=== PATIENT | female | born 1990 | race Asian ===

== ENCOUNTER 2018-01-01 17:42 | Inpatient (IN) | payer BC ==
[2018-01-01 18:13] VITALS: BMI 27.4
[2018-01-01] MEDS ORDERED: Methylergonovine 0.2 MG/ML VIAL IM PRN (18:30)
[2018-01-01] MEDS ORDERED: Diphenoxylate HCl/Atropine Tablet PO PRN ×2 (18:30)
[2018-01-01] MEDS ORDERED: Carboprost 250 MCG/ML AMP IM PRN (18:30)
[2018-01-01] MEDS ORDERED: Ondansetron HCl/PF 4 MG/2 ML Vial IVP PRN ×2 (18:30→20:23)
[2018-01-01] MEDS ORDERED: Promethazine HCl 25 MG/ML VIAL IM PRN ×2 (18:30→20:23)
[2018-01-01] MEDS ORDERED: Acetaminophen 500 MG TAB PO PRN (18:30)
[2018-01-01] MEDS ORDERED: LR / Pitocin 40 units/1000 ml 1,000 ML IV PRN (18:30)
[2018-01-01] MEDS ORDERED: Ibuprofen 800 MG TAB PO PRN (18:30)
[2018-01-01] MEDS ORDERED: Misoprostol 200 MCG TAB PR PRN (18:30)
[2018-01-01] MEDS ORDERED: HYDROcodone/Acetaminophen 5/325 mg Tablet PO PRN ×2 (18:30)
[2018-01-01] MEDS ORDERED: Lidocaine 1% (PF) 30 ML VIAL SC PRN (18:30)
[2018-01-01] MEDS: Lactated Ringer's 1,000 ML IV SCH ×2 (18:35→19:43)
[2018-01-01 18:59] LABS: Mean Corpuscular HGB CONC 33.7 g/dL (32.0-36.0); Mean Corpuscular Hemoglobin 30.6 pg (27.0-31.0); Mean Platelet Volume 8.6 fL (7.4-10.4); Platelet Count 193 thou/uL (130-400); RBC Distribution Width 13.2 % (11.5-14.5); Red Blood Cell (RBC) Count 4.56 mill/uL (4.20-5.40); White Blood Cell (WBC) Count 15.3 thou/uL (4.8-10.8)
--- NOTE | 2018-01-01 19:35 | PDOC.LDHP ---
Labor and Delivery H&P Chief complaint: contractions HPI: 27 yo @ 39w0d by LMP c/w 10 week sono who presents with complaints of ctx, in labor. LGA growth curve noted on serial sonos, however, most recent at 82% ( previously > 90%) Current gestational age (weeks): 39 Due date: 01/08/18 Dating criteria: last menstrual period Grav: 1 Para: 0 Current complications: none Abnormal US findings: No Past Medical History: Denies Current medications: pre-haroldo vitamins Previous surgical history: none Allergies/Adverse Reactions: Allergies Allergy/AdvReac Type Severity Reaction Status Date / Time No Known Allergies Allergy Verified 01/01/18 18:15 Social history: none - Physical Exam Vital signs reviewed and normal: yes FHT: category 2 (160s, mod ledy, +accels, no decels) [place] contractions every: q3-4min - Vaginal Exam cm dilated: 5 (per RN) Effacement: 100% Station: -1 - OB Labs Blood type: O RH: positive Antibody Screen: negative HIV: negative RPR: negative (initial RPR +, however, confirmatory testing negative an repeat RPR negative) HEPSAg: negative 1 hour GCT: negative GBS: negative Urine drug screen: not done Rubella: immune Additional Labs: SSQ and NT negative - Assessment 39w0d IUP Active labor tachycardia - Plan Plan: admit to L&D, labor augmentation if indicated, informed consent obtained, anesthesia consult for pain management -: Monitor FHTs. Tachycardia noted. Currently pt afebrile.
[2018-01-01 19:38] LABS: HBSAg Index 0.22 S/CO (0-0.99); Hep B Surf Ag Non-Reactive S/CO (NonReactive); Syphilis Antibody Nonreactive (Nonreactive); Syphilis Antibody Index 0.04 S/CO (<1.00 Non-Reactive)
[2018-01-01] MEDS ORDERED: Bupivacaine 0.75% W/DEXTROSE 8.25% 2 ML AMP ONE (19:47)
[2018-01-01] MEDS ORDERED: Fentanyl 100 MCG/2 ML VIAL ONE (19:56)
[2018-01-01] MEDS ORDERED: Bupivacaine 0.5% 10 ML VIAL ONE (19:56)
[2018-01-01] MEDS ORDERED: Bupivacaine 0.5% 20 ML, Fentanyl 400 MCG in Sodium Chloride 0.9% 72 ML EPIDURAL SCH ×2 (20:00→20:45)
[2018-01-01] MEDS ORDERED: DISCONTINUE ALL PREVIOUS NARCOTICS FS SCH (20:00)
[2018-01-01] MEDS ORDERED: diphenhydrAMINE 50 MG/ML VIAL IVP PRN (20:23)
[2018-01-01] MEDS ORDERED: Eucerin (Mineral Oil/Petrolatum,White) 30 gm Jar TOP PRN (20:23)
[2018-01-01] MEDS ORDERED: Acetaminophen 325 MG TAB PO PRN (20:23)
[2018-01-01] MEDS ORDERED: ePHEDrine/0.9% NaCl/PF SYRINGE 50 mg/10 ml SLOW IVP PRN (20:23)
[2018-01-01] MEDS ORDERED: Naloxone HCl 0.4 mg/ml Vial IVP PRN ×2 (20:23)
[2018-01-01] MEDS ORDERED: Lactated Ringer's 500 ML IV PRN (20:23)
[2018-01-01] MEDS ORDERED: Fentanyl 4mcg/Marcaine 0.1% Cassette 100 ML EPIDURAL SCH (20:30)
[2018-01-01] MEDS ORDERED: Communication Order-Pharmacy FS SCH (20:30)
[2018-01-01] MEDS ORDERED: Fentanyl 100 MCG/2 ML VIAL I-THECAL SCH (20:30)
--- NOTE | 2018-01-01 20:30 | PDOC.LDPN ---
Labor & Delivery Progress Note - Subjective Subjective: comfortable - Objective Vital signs reviewed and normal: yes General: NAD, resting Uterine fundus: non tender Dilation: 6 Effacement: 100% Station: 0 FHT: category 1 (155, mod variability, no decels) [place] contractions every: 2-3 mins AROM: clear fluid Plan: continue plan of care
[2018-01-01] MEDS ORDERED: Bupivacaine 0.25% 10 ML VIAL FS SCH (20:45)
--- NOTE | 2018-01-01 22:39 | PDOC.LDPN ---
Labor & Delivery Progress Note - Subjective Subjective: comfortable - Objective Vital signs reviewed and normal: yes General: NAD Uterine fundus: non tender Dilation: C Effacement: 100% Station: 1+ FHT: category 2 (140s, minimal ledy, no accels, early decels ) [place] contractions every: q3-4 min - Assessment (1) 39 weeks gestation of Code(s): Z3A.39 - 39 WEEKS GESTATION OF Current Visit: Yes Status : Acute (2) Active labor Code(s): [id number] - Current Visit: Yes Status: Acute Plan: resuscitative measures -: + scalp stimulation. Begin pushing shortly.
[2018-01-02] MEDS: Lactated Ringer's 1,000 ML IV SCH ×2 (00:44→03:22)
--- NOTE | 2018-01-02 01:42 | PDOC.OPDEL ---
OB Operative/Delivery Note Delivery Dr/Surgeon: Polly Martinez DO Pre-Delivery Diagnosis: active labor Procedure/Post Delivery Dx: spontaneous vaginal delivery Weeks gestation: 39 Anesthesia: epidural - Findings A Sex: male - 1 min: 8 - 5 min: 9 - Additional Findings/Plan Placenta delivered: spontaneous Repaired Obstetrical Laceration: 2nd degree Estimated blood loss: 200 cc Compilations/Other Findings: Infant delivered in cephalic presentation without complication Terminal meconium noted Post delivery plan: routine recovery
[2018-01-02 01:59] LABS: Actual Bicarbonate (HCO3a) 22.9 mEq/L (22-26); Base Excess (BEa) -3.7 mEq/L (0 (+/-) 2.5)
[2018-01-02] MEDS ORDERED: Benzocaine/Menthol 20-0.5% 60 ML CAN TOP PRN (05:00)
[2018-01-02] MEDS ORDERED: Methylergonovine 0.2 MG/ML VIAL IM PRN (05:00)
[2018-01-02] MEDS ORDERED: LR / Pitocin 40 units/1000 ml 1,000 ML IV SCH (05:00)
[2018-01-02] MEDS ORDERED: Milk Of Magnesia 30 ML UDCUP PO PRN (05:00)
[2018-01-02] MEDS ORDERED: traMADol HCl 50 MG TAB PO PRN (05:00)
[2018-01-02] MEDS ORDERED: Preparation H Ointment 28 GM TUBE PR PRN (05:00)
[2018-01-02] MEDS ORDERED: Bisacodyl 10 MG SUPP PR PRN (05:00)
[2018-01-02] MEDS: Ibuprofen 800 MG TAB PO SCH ×4 (06:03→21:40)
[2018-01-02] MEDS: Docusate Calcium (SURFAK) 240 MG CAP PO SCH ×2 (07:49→21:40)
[2018-01-02] MEDS: Prenatal Vitamin 1 TAB PO SCH (07:50)
[2018-01-02 10:52] LABS: #Lymphocytes 1.9 thou/uL (1.20-3.40); #Monocytes 1.2 thou/uL (0.11-0.59); #Neutrophils 15.4 thou/uL (1.40-6.50); %Basophils 0.2 % (0.0-1.0); %Eosinophils 0.2 % (0.0-10.0); %Lymphocytes 10.3 % (21.0-51.0); %Monocytes 6.5 % (0.0-10.0); %Neutrophils 82.9 % (42.0-75.0); Hemoglobin 10.9 g/dL (12.0-16.0); Mean Corpuscular HGB CONC 33.6 g/dL (32.0-36.0); Mean Corpuscular Hemoglobin 30.8 pg (27.0-31.0); Mean Corpuscular Volume 91.8 fl (81.0-99.0); Mean Platelet Volume 8.4 fL (7.4-10.4); Platelet Count 155 thou/uL (130-400); RBC Distribution Width 13.1 % (11.5-14.5); Red Blood Cell (RBC) Count 3.54 mill/uL (4.20-5.40); White Blood Cell (WBC) Count 18.6 thou/uL (4.8-10.8)
--- NOTE | 2018-01-02 12:15 | PDOC.PP ---
Post Progress Note Post Day #: 0 Subjective: Pain controlled. Minimal lochia. Attempting to breast feed. PO intake tolerated: yes Flatus: yes Ambulation: yes Vital Signs (12 hours) Temp Pulse Resp BP 01/02/18 11:27 97.9 F 94 18 123/75 01/02/18 06:54 99.0 F 79 20 130/85 01/02/18 05:00 98.5 F 92 18 120/76 01/02/18 04:05 98.4 F 98 20 119/72 01/02/18 03:35 98.5 F 101 H 18 118/77 Weight Weight 150 lb - Physical Examination General: NAD Cardiovascular: RRR Respiratory: non-labored breathing Abdominal: no distention, appropriately TTP Fundus firm & at: below umbilicus Extremities: negative homans (B) Neurological: no gross focal deficits Psychiatric: A&Ox3 Result Diagrams: 01/02/18 10:36 Additional Labs: Post Labs Blood Type O POSITIVE 01/01/18 18:35 Hep Bs Antigen Non-Reactive S/CO (NonReactive) 01/01/18 18:35 (1) 39 weeks gestation of Code(s): Z3A.39 - 39 WEEKS GESTATION OF Status: Resolved (2) Active labor Code(s): FNN1153 - Status: Resolved (3) Vaginal delivery Code(s): O80 - ENCOUNTER FOR FULL-TERM UNCOMPLICATED DELIVERY Status: Acute - Assessment/Plan PPD 0 VSSAF Continue post care.
[2018-01-03] MEDS: Ibuprofen 800 MG TAB PO SCH ×2 (05:11→13:39)
[2018-01-03 08:05] VITALS: BP 120/69; TEMP 97.9
[2018-01-03] MEDS: Docusate Calcium (SURFAK) 240 MG CAP PO SCH (09:35)
[2018-01-03] MEDS: Prenatal Vitamin 1 TAB PO SCH (09:35)
--- NOTE | 2018-01-03 10:31 | PDOC.PP ---
Post Progress Note Post Day #: 1 PO intake tolerated: yes Flatus: yes Ambulation: yes Vital Signs (12 hours) Temp Pulse Resp BP 01/03/18 08:04 97.9 F 75 18 120/69 01/03/18 08:00 97.9 F 75 18 01/03/18 00:00 97.6 F 87 16 113/62 Weight Weight 150 lb - Physical Examination General: NAD Cardiovascular: RRR Respiratory: non-labored breathing Abdominal: no distention, appropriately TTP Fundus firm & at: below umbilicus Extremities: negative homans (B) Neurological: no gross focal deficits Psychiatric: A&Ox3 Result Diagrams: 01/02/18 10:36 Additional Labs: Post Labs Blood Type O POSITIVE 01/01/18 18:35 Hep Bs Antigen Non-Reactive S/CO (NonReactive) 01/01/18 18:35 (1) 39 weeks gestation of Code(s): Z3A.39 - 39 WEEKS GESTATION OF Status: Resolved (2) Active labor Code(s): [id number] - Status: Resolved (3) Vaginal delivery Code(s): O80 - ENCOUNTER FOR FULL-TERM UNCOMPLICATED DELIVERY Status: Acute - Assessment/Plan PPD1 VSSAF, breast feeding, minimal lochia Meeting requirements for d/c. Plan for d/c home when infant discharged.
== END 2018-01-03 16:30 | disposition home or self-care (01) | DRG 775 ==
LOC: L&D/OP 17:42 → L&D 19:00 → 3SW 01-02 03:33
PROVIDERS: ADMIT Obstetrics & Gynecology; ATTEND Obstetrics & Gynecology
PROC: 10E0XZZ Delivery of Products of Conception, External Approach (ICD-10-PCS; principal; 2018-01-02)
PROC: 0KQM0ZZ Repair Perineum Muscle, Open Approach (ICD-10-PCS; 2018-01-02)
PROC: 10907ZC Drainage of Amniotic Fluid, Therapeutic from Products of Conception, Via Natural or Artificial Opening (ICD-10-PCS; 2018-01-02)
DX: O70.1 Second degree perineal laceration during delivery (principal); Z37.0 Single live birth; O77.0 Labor and delivery complicated by meconium in amniotic fluid; Z3A.39 39 weeks gestation of pregnancy
CPT/HCPCS: 36415; 51702; 82805; 85025; 85027; 86780; 87340; 99285; A4216; J2001; J3010; J3490; J7050; S0020

== ENCOUNTER 2018-07-31 07:15 | Outpatient (CLI) | payer BC ==
--- NOTE | 2018-07-31 09:20 | ULT ---
ULTRASOUND ABDOMEN: Date: 07/31/18 HISTORY: 27-year-old female with abnormal LFTs. FINDINGS: There is increased echogenicity of the liver consistent with fatty infiltration with focal sparing ad jacent to the gallbladder. No focal mass or intrahepatic ductal dilatation is seen. No gallstones, ga llbladder wall thickening, or pericholecystic fluid is identified. The common duct measures 2.0 mm in diameter. The kidneys, spleen, and visualized portions of the pancreas, aorta, and IVC are unremarka ble. No free fluid is identified. IMPRESSION: 1. Fatty liver. 2. No evidence of cholelithiasis. POS: [facility]
== END 2018-07-31 07:16 | disposition home or self-care (01) ==
LOC: BICULT 07:15
PROVIDERS: ATTEND Family Medicine
DX: R94.5 Abnormal results of liver function studies (principal); K76.0 Fatty (change of) liver, not elsewhere classified
CPT/HCPCS: 76700